=== PATIENT | female | born 1970 | race Caucasian/White ===

== ENCOUNTER 2017-12-12 14:33 | Emergency (ER) | payer OTHER ==
[2017-12-12 15:03] VITALS: BP 114/74
--- NOTE | 2017-12-12 16:46 | UC ---
Skin Complaint HPI - HPI Summary HPI Summary: 47 yo female had a cyst on her left cheek x months It was about 1/2 the size of a marble a few days ago she vigorously squeezed it now red/swollen and painful - History of Current Complaint Chief Complaint: UCSkin Time Seen by Provider: 12/12/17 16:24 Stated Complaint: SKIN COMPLAINT Hx Obtained From: Patient Hx Last Menstrual Period: 09/26/17 Onset/Duration: Sudden Onset, Lasting Days Timing: Constant Current Severity: Mild Pain Intensity: 2 Pain Scale Used: 0-10 Numeric Location: Discrete Character: Swelling, Pain, Redness, Raised, Painful Aggravating Factor(s): Touch Associated Signs & Symptoms: Positive: Tenderness Related History: Trauma - squeezed cyst - Allergy/Home Medications Allergies/Adverse Reactions: Allergies Allergy/AdvReac Type Severity Reaction Status Date / Time No Known Allergies Allergy Verified 12/12/17 15:03 Review of Systems Constitutional: Negative Skin: Negative Eyes: Negative ENT: Negative Respiratory: Negative Cardiovascular: Negative Gastrointestinal: Negative Genitourinary: Negative Motor: Negative Neurovascular: Negative Musculoskeletal: Negative Neurological: Negative Psychological: Negative Is Patient Immunocompromised?: No All Other Systems Reviewed And Are Negative: Yes PMH/Surg Hx/FS Hx/Imm Hx Previously Healthy: Yes - psoriatic arthritis Cardiovascular History: Hypertension - Surgical History Surgical History: Yes Surgery Procedure, Year, and Place: Right fallopian tube removal;. 1/2 thyroidectomy;. CERVICAL FUSION C4-C5 C5-C6 WITH PLATES AND SCREWS MAY 2011; - Family History Known Family History: Positive: Hypertension, Diabetes - Social History Alcohol Use: Rare Alcohol Amount: 1 drink per week Substance Use Type: None Substance Use Comment - Amount & Last Used: tramadol Smoking Status (MU): Former Smoker Type: Cigarettes Have You Smoked in the Last Year: No When Did the Patient Quit Smoking/Using Tobacco: 11/19/15 Household Exposure Type: Cigars Physical Exam Triage Information Reviewed: Yes Appearance: Well-Appearing, No Pain Distress, Well-Nourished Vital Signs: Initial Vital Signs Temp 98.2 F 12/12/17 14:57 Pulse 81 12/12/17 14:57 Resp 19 12/12/17 14:57 BP 114/74 12/12/17 14:57 Pulse Ox 97 12/12/17 14:57 Eyes: Positive: Conjunctiva Clear ENT: Negative: Nasal congestion, Nasal drainage Neck: Positive: Supple, Nontender Respiratory: Positive: Lungs clear, Normal breath sounds, No respiratory distress Cardiovascular: Positive: RRR, No Murmur Musculoskeletal: Positive: ROM Intact, No Edema Neurological: Positive: Alert, Muscle Tone Normal Psychological Exam: Normal Skin Exam: Normal Course/Dx - Diagnoses Provider Diagnoses: left cheek epidermal inclusion cyst. ? cellulitis versus infammatory response to ruptured cyst Discharge - Discharge Plan Condition: Stable Disposition: HOME Prescriptions: DOXYcycline CAP(*) [DOXYcycline 100MG CAP(*)] 100 mg PO BID #20 cap Patient Education Materials: Epidermal Inclusion Cysts (ED) Referrals: Ashley Briceno NP [Primary Care Provider] - 2 Days Additional Instructions: you squeezed an epidermal inclusion cyst (aka sebaceous cyst) this may have caused an infection although the swelling may be due to an intense inflammatory response to the contents of the cyst I suggest you get rechecked in a couple of days if not improving don't squeeze area frequent warm compresses generally the cyst will in months re-form at that time I suggest your see a plastic surgeon to have it surgically excised Images Head: 1 - red/swollen. alix pore
== END 2017-12-12 16:54 | disposition home or self-care (01) ==
LOC: UCEAST 14:33
DX: L72.0 Epidermal cyst (principal); I10 Essential (primary) hypertension; L40.50 Arthropathic psoriasis, unspecified
CPT/HCPCS: 99212; G0463

== ENCOUNTER 2019-07-21 19:06 | Inpatient (IN) | payer OTHER ==
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
[2019-07-21 19:52] LABS: ABS Eosinophils 0.3 10^3/ul (0-0.6); ABS Lymphocytes 2.7 10^3/ul (1.0-4.8); ABS Monocytes 0.6 10^3/ul (0-0.8); ABS Neutrophils 5.3 10^3/ul (1.5-7.7); Eosinophil % 3.3 %; Hematocrit 43 % (35-47); Hemoglobin 15.1 g/dL (12.0-16.0); Lymphocyte % 30.6 %; Mean Corpuscular HGB Conc 35 g/dL (31-36); Mean Corpuscular Hemoglobin 33 pg (27-31); Mean Corpuscular Volume 93 fL (80-97); Mean Platelet Volume 10.5 fL (7.4-10.4); Platelet Count 184 10^3/uL (150-450); Red Blood Count 4.62 10^6 /uL (3.70-4.87); Red Cell Distribution Width 13 % (10-15)
[2019-07-21 20:10] LABS: ALT 22 U/L (7-52); AST 19 U/L (13-39); Albumin 4.2 g/dL (3.2-5.2); Albumin/Globulin Ratio 1.8 (1-3); Alkaline Phosphatase 65 U/L (34-104); Anion Gap 4 mmol/L (2-11); BUN/Creatinine Ratio 11.3 (8-20); Blood Urea Nitrogen 13 mg/dL (6-24); CO2 Carbon Dioxide 29 mmol/L (22-32); Chloride 107 mmol/L (101-111); EGFR African American 60.7 (>60); EGFR Non-African American 50.2 (>60); Globulin 2.4 g/dL (2-4); Glucose 97 mg/dL (70-100); Sodium 140 mmol/L (135-145); Total Protein 6.6 g/dL (6.4-8.9)
[2019-07-21 20:36] LABS: Acetaminophen < 15 mcg/mL; Alcohol < 10 mg/dL (<10); Salicylate < 2.50 mg/dL (<30)
[2019-07-21 20:51] LABS: TSH (Thyroid Stimulating Horm) 0.17 mcIU/mL (0.34-5.60)
--- NOTE | 2019-07-21 21:43 | ED ---
Progress - Progress Note Progress Note: The patient is a sign-out from Dr. Earline Saini MD, to Dr. Lauren Verdugo MD , at change of shift at 2200 on 07/21/2019, pending MHE and disposition. At 2227, Jacobo Monteiro, mental health cigarette machine filler, states that Dr. Monteiro psychjuan, is voluntarily admitting the patient with dx of depression. Patient understands and agrees with this plan. Re-Evaluation - Re-Evaluation First Eval Re-Evaluation Time: 22:27 Comment: Mental health staff report pt is being voluntarily admitted by Dr. Monteiro. Course/Dx - Course Course Of Treatment: The patient is a sign-out from Dr. Earline Saini MD, to Dr. Lauren Verdugo MD, at change of shift at 2200 on 07/21/2019, pending MHE and disposition. At 2227, Jacobo Monteiro, mental health cigarette machine filler, states that maged Negrete, is voluntarily admitting the patient with dx of depression. Patient understands and agrees with this plan. - Diagnoses Provider Diagnoses: Depression - Provider Notifications Discussed Care Of Patient With: Jacobo Monteiro - mental health cigarette machine filler Time Discussed With Above Provider: 22:27 Instructed by Provider To: Other - Jacobo reports that Dr. Monteiro, psychiatry, is voluntarily admitting the patient with dx of depression. Discharge ED - Sign-Out/Discharge Documenting (check all that apply): Patient Departure - Patient admitted to [facility] by Dr. Monteiro., Receiving Sign-Out Receiving patient FROM: Earline Saini - Patient is a sign-out from Dr. Fredy Saini MD, at 2200 on 07/21/2019, pending MHE and disposition. Patient Received Moderate/Deep Sedation with Procedure: No - Discharge Plan Condition: Stable Disposition: PSYCHIATRIC FACILITY-[facility] Referrals: Ashley Briceno NP [Primary Care Provider] - - Billing Disposition and Condition Condition: STABLE Disposition: Psychiatric Facility [facility] - Attestation Statements Document Initiated by Scribe: Yes Documenting Scribe: Harriett Reeves Provider For Whom Scribe is Documenting (Include Credential): Dr. Lauren Verdugo MD Scribe Attestation: I, jose Lyonsibed for Dr. Lauren Verdugo MD on 07/21/19 at 2244. Scribe Documentation Reviewed: Yes Provider Attestation: The documentation as recorded by the scribe, Harriett Reeves accurately reflects the service I personally performed and the decisions made by me, Dr. Lauren Verdugo MD Status of Scribe Document: Viewed
[2019-07-21 22:00] LABS: Free T4 1.19 ng/dL (0.61-1.12)
[2019-07-21] MEDS ORDERED: diPHENhydraMINE PO* 25 MG PO ONE (22:48)
[2019-07-21] MEDS ORDERED: Metoprolol Succinate XL TAB* 25 MG PO ONE (23:15)
[2019-07-21] MEDS ORDERED: traMADol TAB* 50 MG PO ONE ×2 (23:16→23:50)
[2019-07-21] MEDS ORDERED: Tramadol ER(NF) 100 MG TAB.ER PO PRN (23:44)
[2019-07-22] MEDS ORDERED: Acetaminophen TAB* 325 MG PO PRN (00:42)
[2019-07-22] MEDS ORDERED: Al Hydrox/Mg Hydrox/Simet LIQ* 30 ML UDC PO PRN (00:42)
[2019-07-22] MEDS ORDERED: diPHENhydraMINE PO* 25 MG PO PRN (01:59)
[2019-07-22] MEDS ORDERED: Tapentadol(NF) 50 MG TAB PO PRN (02:09)
[2019-07-22] MEDS ORDERED: Tramadol ER(NF) 100 MG TAB.ER PO SCH (09:00)
[2019-07-22] MEDS ORDERED: Citalopram TAB* 40 MG PO SCH (09:00)
[2019-07-22] MEDS: CMCS:OMEGA-3 FATTY ACIDS (NF) 1,000 MG CAP PO SCH ×2 (09:12→21:08)
[2019-07-22] MEDS: Hydroxychloroquine TAB* 200 MG PO SCH (09:12)
[2019-07-22] MEDS: Pregabalin CAP(*) 50 MG PO SCH ×3 (09:12→20:32)
[2019-07-22] MEDS: Metoprolol Succinate XL TAB* 25 MG PO SCH (09:13)
[2019-07-22] MEDS: Vitamin THERAPEUTIC TAB PO SCH (09:13)
[2019-07-22] MEDS: Diclofenac Sodium EC TAB* 25 MG PO SCH (09:14)
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
[2019-07-22] MEDS ORDERED: Calcium Carbonate CHEW TAB* 500 MG (TUMS) PO SCH (11:00)
[2019-07-22] MEDS ORDERED: clonazePAM TAB(*) 0.5 MG PO PRN (11:45)
[2019-07-22] MEDS ORDERED: Nicotine* 2MG (FRUIT FLAVOR) GUM PO PRN (12:24)
[2019-07-22] MEDS: traMADol TAB* 50 MG PO PRN (13:16)
[2019-07-22] MEDS ORDERED: Calcium Carbonate CHEW TAB* 500 MG (TUMS) PO PRN (14:00)
[2019-07-22] MEDS: Prazosin CAP* 1 MG PO SCH (20:32)
[2019-07-23] MEDS: Levothyroxine TAB* 88 MCG TAB PO SCH (06:15)
[2019-07-23] MEDS: Nicotine Patch Removal NOTE FOLLOW UP SCH (06:16)
[2019-07-23 06:51] LABS: HDL Cholesterol 40.8 mg/dL
[2019-07-23] MEDS: Pregabalin CAP(*) 50 MG PO SCH ×3 (08:31→20:35)
[2019-07-23] MEDS: Vitamin THERAPEUTIC TAB PO SCH (08:31)
[2019-07-23] MEDS: Metoprolol Succinate XL TAB* 25 MG PO SCH (08:31)
[2019-07-23] MEDS: CMCS:OMEGA-3 FATTY ACIDS (NF) 1,000 MG CAP PO SCH ×2 (08:34→20:34)
[2019-07-23] MEDS: Nicotine PATCH 21 MG/24 HR* PATCH TRANSDERM SCH (08:36)
[2019-07-23] MEDS: Escitalopram * 20 MG TABLET PO SCH (08:36)
[2019-07-23] MEDS: Diclofenac Sodium EC TAB* 25 MG PO SCH (09:04)
[2019-07-23] MEDS: Hydroxychloroquine TAB* 200 MG PO SCH (11:10)
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
--- NOTE | 2019-07-23 12:46 | PN ---
BSU: Group Therapy Note - Service Type Service Type: [id number] Group Psychotherapy - Cognitive Behavioral Group Therapy ( CBT):Patient was attentive and participatory in CBT programming this morning, and remained in good behavioral control. Patient expressed positive insights regarding relevant treatment interventions and goals.
[2019-07-23] MEDS: traMADol TAB* 50 MG PO PRN (19:07)
[2019-07-23 20:34] VITALS: BP 151/94
[2019-07-23] MEDS: Prazosin CAP* 1 MG PO SCH (20:35)
[2019-07-23] MEDS ORDERED: diPHENhydraMINE LIQ* 12.5 MG/5 ML UDC PO PRN (22:29)
[2019-07-24] MEDS: Levothyroxine TAB* 88 MCG TAB PO SCH (07:45)
[2019-07-24] MEDS: Vitamin THERAPEUTIC TAB PO SCH (09:52)
[2019-07-24] MEDS: traMADol TAB* 50 MG PO PRN (09:52)
[2019-07-24] MEDS: Pregabalin CAP(*) 50 MG PO SCH (09:52)
[2019-07-24] MEDS: Metoprolol Succinate XL TAB* 25 MG PO SCH (09:52)
[2019-07-24] MEDS: Diclofenac Sodium EC TAB* 25 MG PO SCH (09:53)
[2019-07-24] MEDS: Nicotine PATCH 21 MG/24 HR* PATCH TRANSDERM SCH (09:53)
[2019-07-24] MEDS: Nicotine Patch Removal NOTE FOLLOW UP SCH (09:53)
[2019-07-24] MEDS: CMCS:OMEGA-3 FATTY ACIDS (NF) 1,000 MG CAP PO SCH (09:54)
[2019-07-24] MEDS: Escitalopram * 20 MG TABLET PO SCH (09:54)
[2019-07-24] MEDS: Hydroxychloroquine TAB* 200 MG PO SCH (09:54)
--- NOTE | 2019-07-24 11:30 | PN ---
BSU: Group Therapy Note - Service Type Service Type: [id number] Group Psychotherapy - Cognitive Behavioral Group Therapy ( CBT):Patient was attentive and participatory in CBT programming this morning, and remained in good behavioral control. Patient expressed positive insights regarding relevant treatment interventions and goals.
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
[2019-08-15] MEDS ORDERED: COSENTYX SUBCUT SCH (09:00)
== END 2019-07-24 12:30 | disposition home or self-care (01) | DRG 881 ==
LOC: ED 19:06 → BSU 22:44
PROVIDERS: ADMIT Psychiatry & Neurology Psychiatry; ATTEND Psychiatry & Neurology Psychiatry
PROC: GZHZZZZ Group Psychotherapy (ICD-10-PCS; principal; 2019-07-24)
DX: F32.9 Major depressive disorder, single episode, unspecified (principal); R45.851 Suicidal ideations; M79.7 Fibromyalgia; L40.50 Arthropathic psoriasis, unspecified; F43.0 Acute stress reaction; F41.0 Panic disorder [episodic paroxysmal anxiety]; Z82.49 Family history of ischemic heart disease and other diseases of the circulatory system; Z91.5 Personal history of self-harm; Z81.8 Family history of other mental and behavioral disorders; Z81.1 Family history of alcohol abuse and dependence; Z98.1 Arthrodesis status; Z83.3 Family history of diabetes mellitus; Z72.0 Tobacco use
CPT/HCPCS: 36415; 80053; 80061; 80320; 80329; 83036; 84439; 84443; 84481; 85025; 90853; 99222; 99233; 99238; 99284; A9270-GY; G0480